=== PATIENT | male | born 1975 | race Caucasian/White ===

== ENCOUNTER → 2016-12-15 | Outpatient (CLI) | payer BC ==
--- NOTE | 2016-12-15 11:35 | ECHOS ---
STRESS ECHOCARDIOGRAM INDICATIONS: Abnormal EKG. MEDICATIONS:: BASELINE HEART RATE: 86 BASELINE BLOOD PRESSURE: 132/94 MAXIMUM HEART RATE: 162 MAXIMUM BLOOD PRESSURE: 183/102 85% MPHR: 153 100% MPHR: 180 METS: 10 MAXIMUM STAGE REACHED: IV TOTAL EXERCISE TIME: 9 minutes Baseline EKG shows sinus rhythm with poor R-wave progression. Patient exercised on Frank protocol for a total of 9 minutes achieving 10 METs, 85% of predicted maximal heart rate without chest pain or diagnostic ST-segment depression. Baseline echo was technically suboptimal secondary to poor echo windows. A contrast agent was used to enhance endocardial visualization. Baseline wall motion and LV function are normal. Post exercise, there is normal hyperdynamic response of all segments of myocardium noted. CONCLUSIONS: 1. Excellent exercise tolerance. 2. Negative stress test by EKG criteria. 3. Negative stress echo. MMODL / IJN: [id number] /
--- NOTE | 2016-12-16 09:39 | ECHOF ---
Referral Reason:I25.2 Old myocardial infarction MEASUREMENTS -------- HEIGHT: 170.2 cm WEIGHT: 116.6 kg BP: 145/70 RVIDd: 2.8 cm (< 3.3) IVSd: 1.4 cm (0.6 - 1.1) LVIDd: 5.2 cm (3.9 - 5.3) LVPWd: 0.9 cm (0.6 - 1.1) IVSs: 1.4 cm LVIDs: 3.5 cm LVPWs: 1.7 cm LAESV Index (A-L): 17.66 ml/m Ao Diam: 3.8 cm (2.0 - 3.7) AV Cusp: 2.1 cm (1.5 - 2.6) LA Diam: 3.5 cm (2.7 - 3.8) MV EXCURSION: 26.551 mm (> 18.000) MV EF SLOPE: 74 mm/s (70 - 150) EPSS: 0.7 cm MV E Allan: 0.58 m/s MV DecT: 225 ms MV A Allan: 0.81 m/s MV E/A Ratio: 0.71 RAP: 5.00 mmHg RVSP: 13.42 mmHg FINDINGS -------- Sinus rhythm. This was a technically adequate study. There is moderate concentric left ventricular hypertrophy. Overall left ventricular systolic function is normal with, an EF between 55 - 60 %. The right ventricle is normal in size. Normal LA size by volume 22+/-6 ml/m2. The right atrial size is normal. The aortic valve is trileaflet, and appears structurally normal. No aortic stenosis or regurgitation. Mild mitral regurgitation is present. Mild tricuspid regurgitation present. There is no evidence of pulmonary hypertension. The right ventricular systolic pressure, as measured by Doppler, is 13.42mmHg. There is no pulmonic regurgitation present. The aortic root size is normal. Echo free space represents a pericardial fat pad. CONCLUSIONS -------- 1. There is moderate concentric left ventricular hypertrophy. 2. The aortic root size is normal. 3. Echo free space represents a pericardial fat pad. 4. Overall left ventricular systolic function is normal with, an EF between 55 - 60 %. 5. Normal LA size by volume 22+/-6 ml/m2. 6. The aortic valve is trileaflet, and appears structurally normal. No aortic stenosis or regurgitation. 7. Mild mitral regurgitation is present. 8. Mild tricuspid regurgitation present. 9. There is no evidence of pulmonary hypertension. 10. The right ventricular systolic pressure, as measured by Doppler, is 13.42mmHg. 11. There is no pulmonic regurgitation present. ELECTRICAL SOFTWARE ENGINEER: Meaghan Vega RDCS
== END | disposition home or self-care (01) ==
LOC: RADNMMAIN 09:50
PROVIDERS: ATTEND Family Medicine
DX: I34.0 Nonrheumatic mitral (valve) insufficiency (principal); I07.1 Rheumatic tricuspid insufficiency
CPT/HCPCS: 93350; 93017; 93306; Q9957

== ENCOUNTER → 2016-12-15 | Outpatient (CLI) | payer BC ==
--- NOTE | 2016-12-15 13:54 | CT ---
EXAMINATION TYPE: CT facial bones w con DATE OF EXAM: 12/15/2016 COMPARISON: NONE HISTORY: Rt temporal lesion CT DLP: 603 mGycm Automated exposure control for dose reduction was used. CONTRAST: CT scan of the facial bones is performed with IV Contrast, patient injected with 100 mL of Omnipaque 300. TECHNIQUE: CT scan of the sinuses is performed without contrast, axial images are obtained, coronal r eformatted images are also reviewed. FINDINGS: At the site of clinical concern there is a lipoma which measures 4.0 x 1.0 cm. No complicat ing factors are suggested at this time. No solid masses. Visualized portions of the parotid glands ar e within normal limits. Moderate mucosal thickening left maxillary sinus. Small mucous retention cyst or polyp right maxillary sinus. Remaining paranasal sinuses visualized appear to be well-aerated at this time. Mastoid air cells are well-aerated aerated. Intracranial portions of the brains are grossl y unremarkable. The globes are intact. No evidence of bony destructive process or fracture. IMPRESSION: 1. 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 2. Changes of chronic sinusitis.
== END | disposition home or self-care (01) ==
LOC: RADCTMAIN 09:47
PROVIDERS: ATTEND Otolaryngology
DX: D17.0 Benign lipomatous neoplasm of skin and subcutaneous tissue of head, face and neck (principal)
CPT/HCPCS: 70487; Q9967

== ENCOUNTER → 2020-01-18 | Outpatient (CLI) | payer BC | END | disposition home or self-care (01) | LOC: LABWHC1 08:30 | PROVIDERS: ATTEND Family Medicine | DX: Z20.828 Contact with and (suspected) exposure to other viral communicable diseases (principal) | CPT/HCPCS: U0003; C9803 ==

== ENCOUNTER → 2020-02-06 | Outpatient (CLI) | payer BC | END | disposition home or self-care (01) | LOC: LABWHC1 15:22 | PROVIDERS: ATTEND Family Medicine | DX: U07.1 COVID-19 (principal) | CPT/HCPCS: U0003; C9803 ==